=== PATIENT | female | born 1990 | race Caucasian/White ===

== ENCOUNTER 2019-09-06 15:59 | Emergency (ER) | payer OTHER ==
[~2019-09-06] VITALS: Ht 157.5 cm; Wt 103.4 kg
[2019-09-06] MEDS ORDERED: KETOROLAC TROMETHAMINE 30 MG/ML VIAL IM STA (16:28)
--- NOTE | 2019-09-06 17:28 | Diagnostic Imaging Report ---
Exam: Head CT without contrast History: Headache, visual changes Comparison studies: None Technique: Axial images were obtained from the skull base to the vertex. Coronal and sagittal images reconstructed from the axial data. Dose modulation, iterative reconstruction, and/or weight based adjustment of the mA/kV was utilized to reduce the radiation dose to as low as reasonably achievable. Radiation dose: Total DLP: 969 mGy*cm. Estimated effective dose: DLP x 0.015 Intravenous contrast: None Findings: Scalp: No abnormalities. Bones: No fractures, blastic or lytic lesions. Brain sulci: Appropriate for age. Ventricles: Normal in size and configuration. No hydrocephalus. Extra-axial spaces: No masses, no fluid collection. Parenchyma: No abnormal densities. No masses, hemorrhage, acute or chronic vascular insults. Sellar/suprasellar region: No abnormalities. Craniocervical junction: Patent foramen magnum. No Chiari one malformation. Included paranasal sinuses: Clear. Middle ear and mastoids: Clear. IMPRESSION: No acute intracranial abnormalities. Signed by: Dr. Gentry Fitch M.D. on 09/06/2019 5:25 PM
[2019-09-06 17:41] VITALS: BP 110/75
[2019-09-06] MEDS ORDERED: KETOROLAC TROMETHAMINE 30 MG/ML VIAL IM ONE (18:00)
== END 2019-09-06 17:53 | disposition home or self-care (01) ==
LOC: FSED 15:59
DX: G44.89 Other headache syndrome (principal)
CPT/HCPCS: 70450; 99283; J1885

== ENCOUNTER 2019-09-20 20:12 | Emergency (ER) | payer OTHER ==
[~2019-09-20] VITALS: Ht 157.5 cm; Wt 102.5 kg
--- OUTSIDE RECORDS SUMMARY | 2019-09-20 20:16 | XMS REPORT | Encounter Summary ---
Author Organization Unknown Address [address] [place] [id number] Phone [phone] Care Team Providers Care Form Designer Name Role Phone Dr. Ed Damon 3 [phone] Reason for Visit Bilateral neck pain Instructions 1. Influenza vaccination declined 2. Asthma montelukast 10 mg tablet ProAir HFA 90 mcg/actuation aerosol inhaler 3. Chronic headache disorder 4. Seasonal allergic rhinitis fluticasone propionate 50 mcg/actuation nasal spray,suspension loratadine 10 mg tablet 5. Muscle spasm of cervical muscle of neck cyclobenzaprine 10 mg tablet Medrol (Dar) 4 mg tablets in a dose pack neurology referral - *Please call the patient and make an appointment* PLEASE SEND BACK CONSULT NOTES TO [phone] 6. Acute pansinusitis Augmentin 875 mg-125 mg tablet 7. Diplopia ophthalmology referral 8. Moderate major depression Discussion Note pl f/u in 1 month for a physical & get labs done Encouraged to get the Flu vaccine tay, swine flu kills , ( pt still declined ) f/u in 1 month Patient educational handouts: No information available. Plan of Care Reminders Provider Appointments None recorded. Lab None recorded. Referral Neurology Referral 08/20/2019 Alberto Montoya MD Ophthalmology Referral 08/21/2019 Benjamin Martin MD Procedures None recorded. Surgeries None recorded. Imaging None recorded. Medications Name Start Date albuterol sulfate 0.63 mg/3 mL solution for nebulization Inhale 3 mL twice a day by inhalation route. Augmentin 875 mg-125 mg tablet Take 1 tablet every 12 hours by oral route for 10 days. cyclobenzaprine 10 mg tablet Take 1 tablet twice a day by oral route for 10 days. No alcohol or driving when on this medicine fluticasone propionate 50 mcg/actuation nasal spray,suspension [place] 1 spray every day by intranasal route for 90 days. loratadine 10 mg tablet Take 1 tablet every day by oral route for 90 days. Medrol (Dar) 4 mg tablets in a dose pack Take as directed with food montelukast 10 mg tablet Take 1 tablet every day by oral route in the evening for 90 days. phentermine 37.5 mg tablet Take 1 tablet every day by oral route. ProAir HFA 90 mcg/actuation aerosol inhaler Inhale 2 puffs 3 times a day by inhalation route as needed for 90 days. Medications Administered None recorded. Vitals Height Weight BMI Blood Pressure 5 ft 1 in 232 lbs 43.8 kg/m2 116/78 mm[Hg] Results Lab Results None recorded. Allergies Code Code System Name Reaction Severity Status Onset Shellfish Derived Active Problems Name Status Onset Date Source Asthma Active 08/20/2019 Moderate Major Depression Active 09/01/2019 Diplopia Active 09/01/2019 Seasonal Allergic Rhinitis Active 09/01/2019 Chronic Headache Disorder Active 09/01/2019 Procedures Date Name Performed by Section Information not available Tubal Ligation Information not available Vaccine List None recorded. Social History Tobacco Smoking Status Never Smoker Past Encounters 08/20/2019 Influenza Vaccination Declined; Asthma; Chronic Headache Disorder; Seasonal Allergic Rhinitis; Muscle Spasm of Cervical Muscle of Neck; Acute Pansinusitis; Diplopia; Moderate Major Depression Ammon Garcia MD: [id number] [facility], [address], [place] [address], Ph. History of Present Illness Note:Last er visit- 6 mths ago here because she has a sprain & pain on the back of head - several months - 5 MTHS, no h/o trauma , TAKING PLENTY OF OTC meds , PAIn at rest - 4/10 , if she did not take all the otc meds ITS at 10/10 ,Vision every thing is shaky , every thing is double vision , constantly swallowing ++, sneezing +, runny nose - none ,Stuffy nose ++. h/o seasonal allergies & pernneal allergies , no specific med taken for allergies, no head trauma , no nausea ,no vomiting , upper neck & asha pain - seberal months , so wants to see neurology <div>Has depression but does not want any treatment for it .No suicidal thoughts or ideation , no thoughts to hurt self or any one else.
<div>LMP - Aug </div></div> Review of Systems:ROS as noted in the HPI Review of Systems None recorded. Physical Exam General Adult Exam (Female), Musculoskeletal and Joint Exam Reported By: Patient Constitutional: General Appearance: well-developed, morbidly obese. Level of Distress: NAD. Ambulation: ambulating normally Psychiatric: Insight: good judgement. Mental Status: active and alert, normal mood, normal affect. Orientation: to time, to place, to person Head: Head: normocephalic, atraumatic Eyes: Lids and Conjunctivae: non-injected, no discharge, no pallor. Pupils: PERRLA. Corneas: grossly intact. EOM: EOMI. Lens: clear. Sclerae: non-icteric ENMT: Ears: no lesions on external ear, EACs clear, TM bulging. Hearing: no hearing loss. Nose: no lesions on external nose, nares patent, no septal deviation, nasal passages clear, no nasal discharge, sinus tenderness. Lips, Teeth, and Gums: no mouth or lip ulcers, no bleeding gums, normal dentition. Oropharynx: moist mucous membranes, no erythema, no exudates, tonsils not enlarged; crowded pharynx , cobblestone pattern in posterior pharyngeal wall with purulent streaking Neck: Neck: supple, trachea midline, no masses, FROM. Lymph Nodes: no cervical LAD, no supraclavicular LAD, no axillary LAD. Thyroid: no enlargement, non- tender, no nodules Lungs: Respiratory effort: no dyspnea. Auscultation: breath sounds normal, good air movement, CTA except as noted, no wheezing, no rales/crackles, no rhonchi Cardiovascular: Heart Auscultation: RRR, normal S1, normal S2, no murmurs, no rubs, no gallops Abdomen: Bowel Sounds: normal. Inspection and Palpation: soft, no tenderness, no guarding, no rebound tenderness, no masses, no CVA tenderness; morbidly obese. Liver: non-tender, no hepatomegaly Musculoskeletal:: Motor Strength and Tone: normal motor strength, normal tone; spurling test - negative. Joints, Bones, and Muscles: normal movement of all extremities, no bony abnormalities, no contractures, no malalignment, no tenderness; mild discomofrt to palpation of giovanna posterior cervical muscles , with mild firmness from spasm. Extremities: no cyanosis, no edema, no varicosities Neurologic: Gait and Station: normal gait, normal station. Cranial Nerves: grossly intact. Sensation: grossly intact; strength 5/5 in both upper extremities. Reflexes: DTRs 2+ bilaterally throughout. Coordination and Cerebellum: no tremor Skin: Inspection and palpation: no rash, no lesions, no abnormal nevi, good turgor, no jaundice. Nails: normal Back: Thoracolumbar Appearance: normal curvature Notes: Looks stressed ( taking care of 2 children 8 & 9 yrs with diagnosis of adhd & oppositional defiant , etc<div>keeps , shouting at them to keep quiet </div>
--- OUTSIDE RECORDS SUMMARY | 2019-09-20 20:16 | XMS REPORT ---
Author Author [facility] Address Unknown Phone Unavailable Care Team Providers Care Heading Pinner Name Role Phone SON YOU Unavailable Unavailable Payers Payer Name Policy Type Policy Number Effective Date Expiration Date Problems This patient has no known problems. Allergies, Adverse Reactions, Alerts Allergy Name Allergy Type Status Severity Reaction(s) Onset Date Inactive Date Treating Clinician Comments Shellfish DA Active SV 2019-09-18 00:00:00 iodine DA Active SV 2019-09-18 00:00:00 shellfish derived FA Active U 2019-09-18 00:00:00 Shellfish DA Active SV 2019-06-27 00:00:00 iodine DA Active SV 2019-06-27 00:00:00 shellfish derived FA Active U 2019-06-27 00:00:00 Shellfish DA Active SV 2018-07-16 00:00:00 iodine DA Active SV 2018-07-16 00:00:00 Shellfish DA Active SV 2018-05-19 00:00:00 iodine DA Active SV 2018-05-19 00:00:00 shellfish derived FA Active U 2017-08-26 00:00:00 Medications This patient has no known medications. Results Test Description Test Time Test Comments Text Results Atomic Results Result Comments URINALYSIS COMPLETE 2019-09-18 15:17:00 UA COLOR (test code=COLU) COLORLESS YELLOW UA APPEARANCE (test code=APPU) CLEAR CLEAR UA GLUCOSE DIPSTICK (test code=DGLUU) NEGATIVE mg/dL NEGATIVE UA BILIRUBIN DIPSTICK (test code=BILU) NEGATIVE mg/dL NEGATIVE UA KETONE DIPSTICK (test code=KETU) NEGATIVE mg/dL NEGATIVE UA SPECIFIC GRAVITY (test code=SGU) 1.007 1.001-1.035 UA BLOOD DIPSTICK (test code=JOCELYN) Negative mg/dL NEGATIVE UA PH DIPSTICK (test code=UGO) 7.0 5.0-8.0 UA PROTEIN DIPSTICK (test code=PROU) NEGATIVE mg/dL NEGATIVE UA UROBILINIOGEN DIPSTICK (test code=URO) Normal mg/dL NEGATIVE UA NITRITE DIPSTICK (test code=ELVIS) NEGATIVE NEGATIVE UA LEUKOCYTE ESTERASE W REFLEX (test code=LEUUR) NEGATIVE Sharlene/uL NEGATIVE UA WBC (test code=WBCU) NONE SEEN per HPF 0-5 UA RBC (test code=RBCU) 0-2 #/HPF 0-5 UA EPITHELIAL CELLS (test code=EPIU) FEW per HPF FEW UA BACTERIA (test code=BACU) NONE SEEN #/HPF NONE UA MUCUS (test code=MUCU) FEW #/LPF FEW Urine Source? Clean Catch- XR CHEST 1 [id number] 14:16:00 FAX: Alexey Hogan MD [phone] [place]: [address]: REG Name: LIZZIE FRIEDMAN [facility] : [birth year] Age/S: 29/F [address] Unit #: [id number] Loc: [place] [address] Phys: Alexey Hogan MD Acct: [id number] Dis Date: Status: REG ER PHONE #: [phone] Exam Date: 09/18/2019 1403 FAX #: [phone] Reason: CODE SEPSIS EXAMS: CPT CODE: [id number] XR CHEST 1 V 13327 REASON FOR EXAM: CODE SEPSIS Exam Order Date: 09/18/2019 1:29 PM Ordering M.D.: Alexey Hogan MD PROCEDURE: - XR CHEST 1 V COMPAR FREDRICK: 2 view chest x-ray December 31, 2017 FINDINGS: The lung s are clear. There is no pleural effusion or pneumothorax. Pulmonary vasc ularity is within normal limits. Cardiomediastinal silhouette is n ormal in size for technique. The mediastinal contours are within normal li mits. Musculoskeletal structures are within normal limits. The visualized upper abdomen is within normal limits. IMPRESSION: No acute cardiopulmonary process. Loc ation: [facility] at 1416 Reported and signed by: Jesus Allen MD CC: Alexey Hogan MD Technologist: ABHISHEK IYER, RT(R) Trnscrd Date/Time/By: 9 (1416) : By: [email or web address] Orig Print D/T: S: 09/18/2019 (2175) PAGE 1 Signed Report LACTIC [id number] 14:12:00* Test Item Value Reference Range Comments LACTIC ACID (test code=LACT) 1.1 mmol/L 0.4-1.9 BASIC METABOLIC [id number] 14:12:00* Test Item Value Reference Range Comments SODIUM (test code=NA) 135 mmol/L 136-145 POTASSIUM (test code=K) 3.8 mmol/L 3.5-5.1 CHLORIDE (test code=CL) 103.0 mmol/L 98-107 CARBON DIOXIDE (test code=CO2) 26.0 mmol/L 21-32 ANION GAP (test code=GAP) 9.8 10-20 GLUCOSE (test code=GLU) 134 mg/dL 74-106 BLOOD UREA NITROGEN (test code=BUN) 10 mg/dL 7-18 GLOMERULAR FILTRATION RATE (test code=GFR) > 60 mL/min >=60 Estimated GFR by using Modified MDRD formula.Chronic kidney disease is defined as either kidney damageor GFR <60 mL/min/1.73 m2 for >3 months. CREATININE (test code=CREAT) 0.90 mg/dL 0.55-1.02 Note change in reference range due to change in reagent. BUN/CREATININE RATIO (test code=BUN/CREA) 11.5 10-20 CALCIUM (test code=CA) 9.0 mg/dL 8.5-10.1 HEPATIC FUNCTION [id number] 14:12:00* Test Item Value Reference Range Comments TOTAL PROTEIN (test code=PROT) 8.1 gram/dL 6.4-8.2 ALBUMIN (test code=ALB) 3.7 g/dL 3.4-5.0 GLOBULIN (test code=GLOB) 4.4 gram/dL 2.7-4.2 ALBUMIN/GLOBULIN RATIO (test code=A/G) 0.8 0.75-1.50 BILIRUBIN TOTAL (test code=BILT) 0.40 mg/dL 0.0-1.0 BILIRUBIN DIRECT (test code=BILD) 0.10 mg/dL 0.0-0.20 SGOT/AST (test code=AST) 12 IUnit/L 15-37 SGPT/ALT (test code=ALT) 27 IUnit/L 12-78 ALKALINE PHOSPHATASE TOTAL (test code=ALKP) 63 IUnit/L 45-117 Note change in reference range due to change in reagent. [id number] 14:12:00* Test Item Value Reference Range Comments TROPONIN-I (test code=TROPI) <0.015 ng/mL 0-0.045 BASIC METABOLIC [id number] 14:03:00* Test Item Value Reference Range Comments SODIUM (test code=NA) 135 mmol/L 136-145 POTASSIUM (test code=K) 3.8 mmol/L 3.5-5.1 CHLORIDE (test code=CL) 103.0 mmol/L 98-107 CARBON DIOXIDE (test code=CO2) mmol/L 21-32 ANION GAP (test code=GAP) 10-20 GLUCOSE (test code=GLU) mg/dL 74-106 BLOOD UREA NITROGEN (test code=BUN) mg/dL 7-18 GLOMERULAR FILTRATION RATE (test code=GFR) mL/min >=60 CREATININE (test code=CREAT) mg/dL 0.55-1.02 BUN/CREATININE RATIO (test code=BUN/CREA) 10-20 CALCIUM (test code=CA) mg/dL 8.5-10.1 HEPATIC FUNCTION [id number] 14:03:00* Test Item Value Reference Range Comments TOTAL PROTEIN (test code=PROT) gram/dL 6.4-8.2 ALBUMIN (test code=ALB) g/dL 3.4-5.0 GLOBULIN (test code=GLOB) gram/dL 2.7-4.2 ALBUMIN/GLOBULIN RATIO (test code=A/G) 0.75-1.50 BILIRUBIN TOTAL (test code=BILT) mg/dL 0.0-1.0 BILIRUBIN DIRECT (test code=BILD) mg/dL 0.0-0.20 SGOT/AST (test code=AST) IUnit/L 15-37 SGPT/ALT (test code=ALT) IUnit/L 12-78 ALKALINE PHOSPHATASE TOTAL (test code=ALKP) IUnit/L 45-117 [id number] 14:03:00* Test Item Value Reference Range Comments TROPONIN-I (test code=TROPI) ng/mL 0-0.045 CBC W/AUTO [id number] 13:49:00* Test Item Value Reference Range Comments WHITE BLOOD CELL (test code=WBC) 12.4 K/mm3 4.5-12.5 RED BLOOD CELL (test code=RBC) 4.88 mill/mm3 3.7-5.2 HEMOGLOBIN (test code=HGB) 13.5 gram/dL 11.5-15.5 HEMATOCRIT (test code=HCT) 42.0 % 36.0-46.0 MEAN CELL VOLUME (test code=MCV) 86.1 fL 80-98 MEAN CELL HGB (test code=MCH) 27.7 picogram 27.0-33.0 MEAN CELL HGB CONCETRATION (test code=MCHC) 32.1 gram/dL 33.0-36.0 RED CELL DISTRIBUTION WIDTH (test code=RDW) 13.9 % 11.6-16.2 RED CELL DISTRIBUTION WIDTH SD (test code=RDW-SD) 43.2 fL 37.0-51.0 PLATELET COUNT (test code=PLT) 236 K/mm3 150-450 MEAN PLATELET VOLUME (test code=MPV) 9.9 fL 6.7-11.0 NEUTROPHIL % (test code=NT%) 89.3 % 39.0-69.0 IMMATURE GRANULOCYTE % (test code=IG%) 0.4 % 0.0-5.0 LYMPHOCYTE % (test code=LY%) 4.9 % 25.0-55.0 MONOCYTE % (test code=MO%) 4.6 % 0.0-10.0 EOSINOPHIL % (test code=EO%) 0.3 % 0.0-5.0 BASOPHIL % (test code=BA%) 0.5 % 0.0-1.0 NUCLEATED RBC % (test code=NRBC%) 0.0 % 0-0 NEUTROPHIL # (test code=NT#) 11.09 K/mm3 1.8-7.7 IMMATURE GRANULOCYTE # (test code=IG#) 0.05 x10 3/uL 0-0.03 LYMPHOCYTE # (test code=LY#) 0.61 K/mm3 1.0-5.0 MONOCYTE # (test code=MO#) 0.57 K/mm3 0-0.8 EOSINOPHIL # (test code=EO#) 0.04 K/mm3 0.0-0.5 BASOPHIL # (test code=BA#) 0.06 K/mm3 0.0-0.2 NUCLEATED RBC # (test code=NRBC#) 0.00 K/mm3 0.0-0.1 MANUAL DIFF REQUIRED (test code=MDIFF) NO CBC W/AUTO [id number] 13:46:00* Test Item Value Reference Range Comments WHITE BLOOD CELL (test code=WBC) K/mm3 4.5-12.5 RED BLOOD CELL (test code=RBC) mill/mm3 3.7-5.2 HEMOGLOBIN (test code=HGB) 13.5 gram/dL 11.5-15.5 HEMATOCRIT (test code=HCT) 42.0 % 36.0-46.0 MEAN CELL VOLUME (test code=MCV) fL 80-98 MEAN CELL HGB (test code=MCH) picogram 27.0-33.0 MEAN CELL HGB CONCETRATION (test code=MCHC) gram/dL 33.0-36.0 RED CELL DISTRIBUTION WIDTH (test code=RDW) % 11.6-16.2 RED CELL DISTRIBUTION WIDTH SD (test code=RDW-SD) fL 37.0-51.0 PLATELET COUNT (test code=PLT) K/mm3 150-450 MEAN PLATELET VOLUME (test code=MPV) fL 6.7-11.0 NEUTROPHIL % (test code=NT%) % 39.0-69.0 IMMATURE GRANULOCYTE % (test code=IG%) % 0.0-5.0 LYMPHOCYTE % (test code=LY%) % 25.0-55.0 MONOCYTE % (test code=MO%) % 0.0-10.0 EOSINOPHIL % (test code=EO%) % 0.0-5.0 BASOPHIL % (test code=BA%) % 0.0-1.0 NEUTROPHIL # (test code=NT#) K/mm3 1.8-7.7 LYMPHOCYTE # (test code=LY#) K/mm3 1.0-5.0 MONOCYTE # (test code=MO#) K/mm3 0-0.8 EOSINOPHIL # (test code=EO#) K/mm3 0.0-0.5 BASOPHIL # (test code=BA#) K/mm3 0.0-0.2 CT BRAIN [id number] 17:18:00 [place] [address] Patient Name: LIZZIE ROSS MR #: [id number] : 1990 Age/Sex: 29/F Req #: [id number] Adm Physician: Ordered by: SON YOU MD Report #: [id number] Location: [facility] Room/Bed: Procedure: 112 1-0005 HOPD/CT BRAIN WO-HOPD Exam Date: 09/06/19 Jose Angel lieberman Time: 1654 REPORT STATUS: Signed Exam: Head CT without contrast History: Headache, visual changes Compari son studies: None Technique: Axial images were obtained from the skull b ase to the vertex. Coronal and sagittal images reconstructed from the axial da ta. Dose modulation, iterative reconstruction, and/or weight based adjustment of the mA/kV was utilized to reduce the radiation dose to as low as reasonably achievable. Radiation dose: Total DLP: 969 mGy*cm. Estimated ef fective dose: DLP x 0.015 Intravenous contrast: None Findings: Scal p: No abnormalities. Bones: No fractures, blastic or lytic lesions. Brain sulci: Appropriate for age. Ventricles: Normal in size and configuration. No hydrocephalus. Extra-axial spaces: No masses, no fluid collection. Paren chyma: No abnormal densities. No masses, hemorrhage, acute or chronic vasc ular insults. Sellar/suprasellar region: No abnormalities. Craniocervical junction: Patent foramen magnum. No Chiari one malformation. Included para nasal sinuses: Clear. Middle ear and mastoids: Clear. IMPRESSION: N o acute intracranial abnormalities. Signed by: Dr. Aviva Whitley M.D. on 11/06/2018 5:25 PM Dictated By: AVIVA WHITLEY MD [id number] Transcribed By: RADHA on 09/06/19 172 5 COPY TO: SON YOU MD URINALYSIS [id number] 01:20:00* Test Item Value Reference Range Comments UA COLOR (test code=COLU) YELLOW YELLOW UA APPEARANCE (test code=APPU) CLEAR CLEAR UA GLUCOSE DIPSTICK (test code=DGLUU) NEGATIVE mg/dL NEGATIVE UA BILIRUBIN DIPSTICK (test code=BILU) NEGATIVE NEGATIVE UA KETONE DIPSTICK (test code=KETU) NEGATIVE mg/dL NEGATIVE UA SPECIFIC GRAVITY (test code=SGU) >=1.030 1.001-1.035 UA BLOOD DIPSTICK (test code=JOCELYN) NEGATIVE NEGATIVE UA PH DIPSTICK (test code=UGO) 5.5 5.0-8.0 UA PROTEIN DIPSTICK (test code=PROU) TRACE (15) mg/dL Neg-15 UA UROBILINIOGEN DIPSTICK (test code=URO) 0.2 mg/dL 0.0-0.2 UA NITRITE DIPSTICK (test code=ELVIS) NEGATIVE NEGATIVE UA LEUKOCYTE ESTERASE W REFLEX (test code=LEUUR) NEGATIVE NEGATIVE UA WBC (test code=WBCU) 0-5 per HPF 0-5 UA RBC (test code=RBCU) 0-2 #/HPF 0-5 UA EPITHELIAL CELLS (test code=EPIU) FEW per HPF FEW UA BACTERIA (test code=BACU) FEW #/HPF NONE UA HYALINE CAST (test code=HYALU) 3-5 #/LPF 0-5 UA MUCUS (test code=MUCU) FEW #/LPF FEW Urine Source? Clean CatchURINALYSIS [id number] 01:16:00* Test Item Value Reference Range Comments UA COLOR (test code=COLU) YELLOW UA APPEARANCE (test code=APPU) CLEAR UA BILIRUBIN DIPSTICK (test code=BILU) NEGATIVE UA SPECIFIC GRAVITY (test code=SGU) 1.001-1.035 UA PH DIPSTICK (test code=UGO) 5.0-8.0 UA UROBILINIOGEN DIPSTICK (test code=URO) mg/dL 0.0-0.2 UA NITRITE DIPSTICK (test code=ELVIS) NEGATIVE UA LEUKOCYTE ESTERASE W REFLEX (test code=LEUUR) NEGATIVE UA WBC (test code=WBCU) 0-5 per HPF 0-5 UA RBC (test code=RBCU) 0-2 #/HPF 0-5 UA EPITHELIAL CELLS (test code=EPIU) FEW per HPF FEW UA BACTERIA (test code=BACU) FEW #/HPF NONE UA HYALINE CAST (test code=HYALU) 3-5 #/LPF 0-5 UA MUCUS (test code=MUCU) FEW #/LPF FEW Urine Source? Clean CatchBASIC METABOLIC [id number] 23:44:00* Test Item Value Reference Range Comments SODIUM (test code=NA) 139 mmol/L 136-145 POTASSIUM (test code=K) 3.6 mmol/L 3.5-5.1 CHLORIDE (test code=CL) 106.0 mmol/L 98-107 CARBON DIOXIDE (test code=CO2) 26.0 mmol/L 21-32 ANION GAP (test code=GAP) 10.6 10-20 GLUCOSE (test code=GLU) 132 mg/dL 74-106 BLOOD UREA NITROGEN (test code=BUN) 15 mg/dL 7-18 GLOMERULAR FILTRATION RATE (test code=GFR) > 60 mL/min >=60 Estimated GFR by using Modified MDRD formula.Chronic kidney disease is defined as either kidney damageor GFR <60 mL/min/1.73 m2 for >3 months. CREATININE (test code=CREAT) 0.80 mg/dL 0.55-1.02 Note change in reference range due to change in reagent. BUN/CREATININE RATIO (test code=BUN/CREA) 18.8 10-20 CALCIUM (test code=CA) 8.5 mg/dL 8.5-10.1 HEPATIC FUNCTION [id number] 23:44:00* Test Item Value Reference Range Comments TOTAL PROTEIN (test code=PROT) 7.7 gram/dL 6.4-8.2 ALBUMIN (test code=ALB) 3.5 g/dL 3.4-5.0 GLOBULIN (test code=GLOB) 4.2 gram/dL 2.7-4.2 ALBUMIN/GLOBULIN RATIO (test code=A/G) 0.8 0.75-1.50 BILIRUBIN TOTAL (test code=BILT) 0.30 mg/dL 0.0-1.0 BILIRUBIN DIRECT (test code=BILD) 0.11 mg/dL 0.0-0.20 SGOT/AST (test code=AST) 10 IUnit/L 15-37 SGPT/ALT (test code=ALT) 22 IUnit/L 12-78 ALKALINE PHOSPHATASE TOTAL (test code=ALKP) 62 IUnit/L 45-117 Note change in reference range due to change in reagent. [id number] 23:44:00* Test Item Value Reference Range Comments LIPASE (test code=LIP) 93 U/L 73.0-393.0 HCG SERUM [id number] 23:44:00* Test Item Value Reference Range Comments HCG SERUM QUAL (test code=HCGQL) NEGATIVE NEGATIVE This HCGQL test is NOT applicable for MALE patients.Check with nurse about probable order error.If Tumor Marker Test needed, nurse should order test "HCGTU"(Test #550.77257) BASIC METABOLIC [id number] 23:43:00* Test Item Value Reference Range Comments SODIUM (test code=NA) 139 mmol/L 136-145 POTASSIUM (test code=K) 3.6 mmol/L 3.5-5.1 CHLORIDE (test code=CL) 106.0 mmol/L 98-107 CARBON DIOXIDE (test code=CO2) mmol/L 21-32 ANION GAP (test code=GAP) 10-20 GLUCOSE (test code=GLU) mg/dL 74-106 BLOOD UREA NITROGEN (test code=BUN) mg/dL 7-18 GLOMERULAR FILTRATION RATE (test code=GFR) mL/min >=60 CREATININE (test code=CREAT) mg/dL 0.55-1.02 BUN/CREATININE RATIO (test code=BUN/CREA) 10-20 CALCIUM (test code=CA) mg/dL 8.5-10.1 HEPATIC FUNCTION [id number] 23:43:00* Test Item Value Reference Range Comments TOTAL PROTEIN (test code=PROT) gram/dL 6.4-8.2 ALBUMIN (test code=ALB) g/dL 3.4-5.0 GLOBULIN (test code=GLOB) gram/dL 2.7-4.2 ALBUMIN/GLOBULIN RATIO (test code=A/G) 0.75-1.50 BILIRUBIN TOTAL (test code=BILT) mg/dL 0.0-1.0 BILIRUBIN DIRECT (test code=BILD) mg/dL 0.0-0.20 SGOT/AST (test code=AST) IUnit/L 15-37 SGPT/ALT (test code=ALT) IUnit/L 12-78 ALKALINE PHOSPHATASE TOTAL (test code=ALKP) IUnit/L 45-117 [id number] 23:43:00* Test Item Value Reference Range Comments LIPASE (test code=LIP) U/L 73.0-393.0 HCG SERUM [id number] 23:43:00* Test Item Value Reference Range Comments HCG SERUM QUAL (test code=HCGQL) NEGATIVE NEGATIVE This HCGQL test is NOT applicable for MALE patients.Check with nurse about probable order error.If Tumor Marker Test needed, nurse should order test "HCGTU"(Test #550.73536) BASIC METABOLIC [id number] 23:32:00* Test Item Value Reference Range Comments SODIUM (test code=NA) 139 mmol/L 136-145 POTASSIUM (test code=K) 3.6 mmol/L 3.5-5.1 CHLORIDE (test code=CL) 106.0 mmol/L 98-107 CARBON DIOXIDE (test code=CO2) mmol/L 21-32 ANION GAP (test code=GAP) 10-20 GLUCOSE (test code=GLU) mg/dL 74-106 BLOOD UREA NITROGEN (test code=BUN) mg/dL 7-18 GLOMERULAR FILTRATION RATE (test code=GFR) mL/min >=60 CREATININE (test code=CREAT) mg/dL 0.55-1.02 BUN/CREATININE RATIO (test code=BUN/CREA) 10-20 CALCIUM (test code=CA) mg/dL 8.5-10.1 HEPATIC FUNCTION [id number] 23:32:00* Test Item Value Reference Range Comments TOTAL PROTEIN (test code=PROT) gram/dL 6.4-8.2 ALBUMIN (test code=ALB) g/dL 3.4-5.0 GLOBULIN (test code=GLOB) gram/dL 2.7-4.2 ALBUMIN/GLOBULIN RATIO (test code=A/G) 0.75-1.50 BILIRUBIN TOTAL (test code=BILT) mg/dL 0.0-1.0 BILIRUBIN DIRECT (test code=BILD) mg/dL 0.0-0.20 SGOT/AST (test code=AST) IUnit/L 15-37 SGPT/ALT (test code=ALT) IUnit/L 12-78 ALKALINE PHOSPHATASE TOTAL (test code=ALKP) IUnit/L 45-117 [id number] 23:32:00* Test Item Value Reference Range Comments LIPASE (test code=LIP) U/L 73.0-393.0 HCG SERUM [id number] 23:32:00* Test Item Value Reference Range Comments HCG SERUM QUAL (test code=HCGQL) NEGATIVE CBC W/O [id number] 23:27:00* Test Item Value Reference Range Comments WHITE BLOOD CELL (test code=WBC) 11.8 K/mm3 4.5-12.5 RED BLOOD CELL (test code=RBC) 4.90 mill/mm3 3.7-5.2 HEMOGLOBIN (test code=HGB) 13.7 gram/dL 11.5-15.5 HEMATOCRIT (test code=HCT) 42.0 % 36.0-46.0 MEAN CELL VOLUME (test code=MCV) 85.7 fL 80-98 MEAN CELL HGB (test code=MCH) 28.0 picogram 27.0-33.0 MEAN CELL HGB CONCETRATION (test code=MCHC) 32.6 gram/dL 33.0-36.0 RED CELL DISTRIBUTION WIDTH (test code=RDW) 14.3 % 11.6-16.2 PLATELET COUNT (test code=PLT) 266 K/mm3 150-450 MEAN PLATELET VOLUME (test code=MPV) 10.6 fL 6.7-11.0 CBC W/O [id number] 23:24:00* Test Item Value Reference Range Comments WHITE BLOOD CELL (test code=WBC) K/mm3 4.5-12.5 RED BLOOD CELL (test code=RBC) mill/mm3 3.7-5.2 HEMOGLOBIN (test code=HGB) 13.7 gram/dL 11.5-15.5 HEMATOCRIT (test code=HCT) 42.0 % 36.0-46.0 MEAN CELL VOLUME (test code=MCV) fL 80-98 MEAN CELL HGB (test code=MCH) picogram 27.0-33.0 MEAN CELL HGB CONCETRATION (test code=MCHC) gram/dL 33.0-36.0 RED CELL DISTRIBUTION WIDTH (test code=RDW) % 11.6-16.2 PLATELET COUNT (test code=PLT) K/mm3 150-450 MEAN PLATELET VOLUME (test code=MPV) fL 6.7-11.0 - XR CHEST 2 [id number] 13:43:00 FAX: Iggy Jackson MD [phone] [place]: [address] St: UNK FAX: Carlos Hong NP [phone] Name: LIZZIE ALEMAN [facility] : 1990 Age/S: 27/F [address] Unit #: [id number] Loc: [facility] [place] [address] Phys: Carlos Randle NP Acct: [id number] Dis Date: Status: UNK PHONE #: [phone] Exam Date: 08/26/2017 1327 FAX #: [phone] Reason: cough h/o asthma EXAMS: CPT CODE: [id number] XR CHEST 2 V 31094 HISTORY: cough h/o asthma TECHNIQUE: PA and lateral chest x-ray COMPARISON: 04/06/17 FINDINGS: No airspace consolidation or pleural effusion. Normal heart size. Mediastinal silhouette is unremarkable. Visualized osseous structures are grossly intact. IMPRESSION: No radiographic evidence of acute cardiopulmonary process. at 1343 Reported and signed by: Karma Pugh D.O. CC: Iggy Jackson MD; Carlos Randle NP Technologist: HERBERT SILVA JR Trnscrd Date/Time/By: 08/26/2017 (5044) : By: [email or web address] Orig Print D/T: S: 08/26/2017 (4517) PAGE 1 Signed Report - XR CHEST 2 [id number] 18:50:00 FAX: Melly Degroot NP [place]: [address] St: UNK Name: LIZZIE WOODS [facility] : [birth year] Age/S: 26/F [address] Unit #: [id number] Loc: [facility] [place] [address] Phys: Melly Degroot LEAD PRINTER Acct: [id number] Dis Date: Status: UNK PHONE #: [phone] Exam Date: 04/06/2017 1847 FAX #: [phone] Reason: DECREASED BREATH SOUNDS EXAMS: CPT CODE: [id number] XR CHEST 2 V 64360 EXAM: Chest X-ray, 2 views; CLINICAL HISTORY: Sinus pressure and decreased breath sounds, head ache; FINDINGS: The lungs are clear, no infiltrates, no quiana ma; no effusions; no pneumothorax; normal cardiomediastinal silhoue tte. IMPRESSION: Normal chest x-ray. at 1850 Rep orted and signed by: Александр Zuniga M.D. CC: Kraig Degroot NP Technologist: GREGORIO McnealR Trnscrd Date/Time/By: 04/06/2017 (1849) : By: GenesisW Orig Print D/T: S: 04/06/2017 (1852) PAGE 1 Signed Report - CT MAXIFAC W/O [id number] 18:49:00 Name: LIZZIE ALEMAN [facility] : 1990 Age/S: 26 / F [address] Unit #: [id number] Loc: [place] [address] Phys: Melly Degroot LEAD PRINTER Acct: [id number] Dis Date: Status: UNK PHONE #: [phone] Exam Date: 04/06/2017 183 FAX #: [phone] Reason: PAIN AND TENDERNESS EXAMS: CPT CODE: [id number] CT MAXIFAC W/O [place] 23434 EXAM: CT of the maxillofacial structures without contrast; INFORMATION: Headache and sinus pressure; TECHNIQUE AND FINDINGS: 2.5 mm axial scans; sagittal and coronal reconstructions. Paranasal sinuses are well developed and are normally aerated; no mucosal swelling and no fluid collections. Osseous contours of the sinuses and orbits, nasal bones, zygomatic arches and mandible are intact. IMPRESSION: Normal study; no evidence of sinusitis or other pathological changes. at 1849 Reported and signed by: Александр Zuniga M.D. CC: Melly Degroot NP Technologist:Patria Wiley RT(R),CT; CTDI: DLP: Trnscb Date/Time: 04/06/2017 (184) Shameka Orig Print D/T: S: 04/06/2017 (0294) PAGE 1 Signed Report
[2019-09-20] MEDS ORDERED: NAPROSYN500 MG PO (21:02)
[2019-09-20] MEDS ORDERED: VALACYCLOVIR500 MG PO (21:02)
== END 2019-09-20 21:24 | disposition home or self-care (01) ==
LOC: FSED 20:12
DX: B00.2 Herpesviral gingivostomatitis and pharyngotonsillitis (principal)
CPT/HCPCS: 99282

== ENCOUNTER 2022-12-04 15:08 | Emergency (ER) | payer OTHER ==
[~2022-12-04] VITALS: Ht 157.5 cm; Wt 81.6 kg
[~2022-12-04 15:08] MED LIST: NAPROSYN500 MG PO; VALACYCLOVIR500 MG PO
[2022-12-04] MEDS ORDERED: ONDANSETRON HCL INJ 2MG/ML 2ML 2 MG/ML VIAL IV STA (15:38)
[2022-12-04] MEDS ORDERED: SODIUM CHLORIDE 0.9% 1000ML 1,000 ML IV STA (15:38)
[2022-12-04] MEDS ORDERED: FAMOTIDINE 20 MG/2 ML VIAL IV STA (15:38)
[2022-12-04 15:51] LABS: BASOPHILS % 0.5 % (0.0-1.0); EOSINOPHILS # (AUTO) 0.2 (0.0-0.4); EOSINOPHILS % 1.9 % (0.0-6.0); HEMATOCRIT 35.6 % (34.2-44.1); HEMOGLOBIN 11.3 g/dL (12.0-16.0); LYMPHOCYTES # (AUTO) 1.6 (1.0-3.2); LYMPHOCYTES % 19.1 % (18.0-39.1); MEAN CORPUSCULAR HEMOGLOBIN 26.1 pg (28-32); MEAN CORPUSCULAR HGB CONC 31.7 g/dL (31-35); MEAN CORPUSCULAR VOLUME 82.2 fL (81-99); MONOCYTES # (AUTO) 0.6 (0.2-0.8); MONOCYTES % 6.9 % (4.4-11.3); NEUTROPHILS # (AUTO) 5.8 (2.1-6.9); NEUTROPHILS % 71.2 % (38.7-80.0); PLATELET COUNT 220 x10e3/uL (140-360); RED BLOOD COUNT 4.33 x10e6/uL (3.6-5.1); RED CELL DISTRIBUTION WIDTH 15.3 % (11.7-14.4)
[2022-12-04 16:00] LABS: CLARITY,URINE CLEAR (CLEAR); COLOR,URINE YELLOW (YELLOW); KETONES,URINE NEGATIVE (NEGATIVE); LEUKOCYTE ESTERASE ,URINE NEGATIVE (NEGATIVE); NITRITE,URINE NEGATIVE (NEGATIVE); PROTEIN,URINE DIPSTICK NEGATIVE (NEGATIVE)
[2022-12-04 16:01] LABS: URINE UROBILINOGEN 0.2 mg/dL (0.2 - 1)
[2022-12-04 16:05] LABS: ANION GAP 11.8 mmol/L (8-16); CREATININE, SERUM 0.73 mg/dL (0.57-1.11); POTASSIUM 3.8 mmol/L (3.5-5.1)
[2022-12-04 16:15] LABS: BACTERIA,URINE MODERATE /HPF; EPITHELIAL CELLS,URINE MODERATE /LPF; RBC,URINE 0-5 /HPF (0-5); WBC,URINE (MAN) 0-5 /HPF (0-5)
[2022-12-04 16:33] LABS: HCG,QUANTITATIVE 85766.38 mIU/mL (0-10)
[2022-12-04] MEDS ORDERED: DICLEGIS DR 101 EACH PO (17:45)
[2022-12-04] MEDS ORDERED: ONDANSETRON ODT4 MG PO (17:45)
[2022-12-04 17:58] VITALS: BP 111/74
== END 2022-12-04 18:00 | disposition home or self-care (01) ==
LOC: ER 15:13 → MERGE 15:13 → ER 18:00
DX: O26.91 Pregnancy related conditions, unspecified, first trimester (principal); O21.0 Mild hyperemesis gravidarum; K21.9 Gastro-esophageal reflux disease without esophagitis
CPT/HCPCS: 36415; 80048; 81001; 84702; 85025; 87086; 99283; J2405; J7030